=== PATIENT | female | born 1995 | race Caucasian/White ===

== ENCOUNTER 2017-04-23 11:12 | Emergency (ER) | payer BC, OTHER ==
[~2017-04-23] VITALS: Ht 165.1 cm; Wt 55.3 kg
[2017-04-23 11:22] VITALS: TEMP 37.1; Ht 165.1 cm; Wt 55.3 kg
[2017-04-23] MEDS ORDERED: ACETAMINOPHEN 500 MG TAB PO STA (11:37)
[2017-04-23] MEDS ORDERED: ONDANSETRON 4MG OD TAB PO STA (11:37)
[2017-04-23] MEDS ORDERED: ETON1IMP2 (12:00)
--- NOTE | 2017-04-23 12:31 | DIAGNOSTIC IMAGING REPORT ---
CT SCAN OF THE BRAIN WITHOUT IV CONTRAST CLINICAL HISTORY: Fall. COMPARISON STUDY: No priors. TECHNIQUE: Unenhanced axial CT scan of the brain is performed from the vertex to the skull base. A dose lowering technique was utilized adhering to the principles of ALARA. CT DOSE: 537.48 mGy.cm FINDINGS: Brain parenchyma: The brain parenchyma is normal in appearance. There is no hemorrhage, mass effect, or evidence of acute territorial ischemia by CT criteria. Jules-white matter is preserved. No extra-axial fluid collection is seen. Ventricles, sulci, cisterns: Normal in configuration. Intracranial vasculature: The visualized intracranial vasculature at the skull base is normal in appearance. Calvarium: There is no depressed calvarial fracture. Sinuses and mastoids: The visualized paranasal sinuses are clear. The mastoid air cells are well pneumatized. Orbits: The bony orbits are grossly intact. IMPRESSION: No acute intracranial abnormality. Electronically signed by: Chester Chun M.D. 04/23/2017 12:29 PM Dictated Date/Time: 04/23/2017 12:27 PM
[2017-04-23 13:30] VITALS: BP 121/73; PULSE 79; O2SAT 98
--- NOTE | 2017-04-23 16:57 | EMERGENCY ROOM VISIT NOTE ---
History Report prepared by Reggie: Andrew Sorto Under the Supervision of: Dr. Jeffy Rodriguez M.D. First contact with patient: 11:26 Chief Complaint: SYNCOPE Stated Complaint: FAINTED/HIT HEAD Nursing Triage Summary: "I went to get a shower this morning and I passed out hitting the front of my head. I tried to stand up and passed out again and hit the back of my head." patient has abrasions noted to left forehead. patient denies neck pain. we were drinking last night but nothing like this ever happened History of Present Illness The patient is a 22 year old female who presents to the Emergency Room with complaints of 2 syncopal episodes that occurred around an hour ago. She says that she did drink a decent amount of alcohol last night, but felt fine when she woke up this morning. She adds that she has felt fine the past few days, without any recent major illnesses. The patient notes that she did not vomit last night. She says that she then went to take a shower this morning, and started to see stars, and then she tried to get out of the shower, but before she could get out, she fell onto the ground and hit the front of her head. The patient states that she did not remember hitting the ground. She says that when she woke up, she tried to dry her hair a little, but then passed out again, hitting the back of her head. She notes that currently, she has a bit of a headache, with pain at the back of her head. She rates her pain as a 5 out of 10 in severity, and the patient notes that she is a bit nauseous. The patient adds that she has fainted before, including when she was getting her ears pierced. She denies any family history of heart issues or passing out. The patient notes that she did not take any medications this morning. She says that her last period was at the end of last month and it was normal. Pt denies fevers , chills, diaphoresis, neck pain, chest pain, breathing difficulties, vomiting, abdominal pain, back pain, melena, hematochezia, urinary symptoms, numbness, weakness, lymphadenopathy, rash, or other complaints. Source of History: patient, friend Onset: An hour ago Position: other (global - syncope) Symptom Intensity: 2 episodes Timing: other (episodes) Associated Symptoms: + headache, + nausea Note: Associated symptoms: Back of head hurts. Saw stars before passing out. Review of Systems See HPI for pertinent positives and negatives. A total of ten systems were reviewed and were otherwise negative. Past Medical & Surgical Medical Problems: (1) Gout (2) No chronic diseases present Family History No pertinent family history Social History Smoking Status: Never Smoker Alcohol Use: occasionally Marital Status: single Occupation Status: [employer] student Current/Historical Medications Scheduled Etonogestrel (Nexplanon), 1 DOSE UD Allergies Coded Allergies: No Known Allergies (Unverified , 04/23/17) Physical Exam Vital Signs Date Time Temp Pulse Resp B/P (MAP) Pulse Ox O2 Delivery O2 Flow Rate FiO2 04/23/17 13:30 79 121/73 98 Room Air 04/23/17 12:14 80 04/23/17 11:30 90 137/94 83 120/80 103 112/74 04/23/17 11:22 37.1 105 18 131/92 100 Room Air Physical Exam GENERAL: Awake, alert, mildly uncomfortable-appearing, in no distress HENT: Contusion on front and back of head. Oropharynx unremarkable. EYES: Normal conjunctiva. Sclera non-icteric. NECK: Supple. No nuchal rigidity. FROM. No JVD. RESPIRATORY: Clear to auscultation. CARDIAC: Regular rate, normal rhythm. Extremities warm and well perfused. Pulses equal. ABDOMEN: Soft, non-distended. No tenderness to palpation. No rebound or guarding. No masses. RECTAL: Deferred. MUSCULOSKELETAL: Chest examination reveals no tenderness. The back is symmetrical on inspection without obvious abnormality. There is no CVA tenderness to palpation. No joint edema. LOWER EXTREMITIES: Calves are equal size bilaterally and non-tender. No edema. No discoloration. NEURO: Normal sensorium. No sensory or motor deficits noted. SKIN: No rash or jaundice noted. Medical Decision & Procedures ER Provider Diagnostic Interpretation: CT: Radiology results as stated below per my review and radiologist interpretation CT SCAN OF THE BRAIN WITHOUT IV CONTRAST CLINICAL HISTORY: Fall. COMPARISON STUDY: No priors. TECHNIQUE: Unenhanced axial CT scan of the brain is performed from the vertex to the skull base. A dose lowering technique was utilized adhering to the principles of ALARA. CT DOSE: 537.48 mGy.cm FINDINGS: Brain parenchyma: The brain parenchyma is normal in appearance. There is no hemorrhage, mass effect, or evidence of acute territorial ischemia by CT criteria. Jules-white matter is preserved. No extra-axial fluid collection is seen. Ventricles, sulci, cisterns: Normal in configuration. Intracranial vasculature: The visualized intracranial vasculature at the skull base is normal in appearance. Calvarium: There is no depressed calvarial fracture. Sinuses and mastoids: The visualized paranasal sinuses are clear. The mastoid air cells are well pneumatized. Orbits: The bony orbits are grossly intact. IMPRESSION: No acute intracranial abnormality. Electronically signed by: Chester Chun M.D. 04/23/2017 12:29 PM Dictated Date/Time: 04/23/2017 12:27 PM Medications Administered Medications (Trade) Dose Ordered Sig/Leslie Route Start Time Stop Time Status Last Admin Dose Admin Ondansetron HCl (Zofran Odt) 4 mg NOW STAT PO 04/23/17 11:37 04/23/17 11:40 DC 04/23/17 11:58 4 MG Acetaminophen (Tylenol Tab) 1,000 mg NOW STAT PO 04/23/17 11:37 04/23/17 11:40 DC 04/23/17 11:58 1,000 MG ECG Indication: syncope Rate (beats per minute): 59 Rhythm: sinus bradycardia, other (with sinus arrhythmia) Findings: no acute ischemic change, no ectopy, other (normal intervals) ED Course 1133: The patient was evaluated in room C7. A complete history and physical exam was performed. 1137: Ordered Tylenol Tab 1000 mg PO, Zofran Odt 4 mg PO. 1306: I reevaluated the patient and she is comfortable. Discussed results and discharge instructions: she verbalized understanding and agreement. The patient is ready for discharge. Medical Decision Triage Nursing notes reviewed and agree them. Additional history obtained from the patient's friend. The patient's history was concerning for syncope and a head injury. Differential diagnosis: Etiologies such as concussion, infection, hypoglycemia, electrolyte abnormalities, cardiac sources, intracerebral event, toxicologic, neurologic, as well as others were entertained. Physical examination: As above. Clinically the patient was doing well. Orthostatic testing negative. Neurologically intact. No open wounds. ER treatment provided: Oral hydration Zofran ODT Tylenol On reassessment the patient felt better. Diagnostics interpretation by me: Imaging studies: CAT scan as above The patient has a concussion. She had a syncopal episode which sounds very consistent with a vasovagal event. She had a prodrome. She notes significant alcohol consumption last night. The patient was counseled and educated.I gave my usual and customary discussion regarding this issue. By the evaluation outlined above emergent etiologies such as infection, hypoglycemia, electrolyte abnormalities, cardiac sources, intracerebral event, toxicologic, neurologic,as well as others were deemed relatively unlikely. The patient was informed about the findings as listed above. All questions were answered and she was pleased with the treatment. Return instructions were outlined and the patient was discharged in stable condition. Outpatient prescription management: None Referral: The patient was referred back to her primary care physician for follow-up this coming week for a recheck of the current condition. Head Trauma GCS Score: 15 Medication Reconcilliation Current Medication List: was personally reviewed by me Blood Pressure Screening Patient's blood pressure: Normal blood pressure Impression Primary Impression: Syncope Additional Impression: Concussion Scribe Attestation The scribe's documentation has been prepared under my direction and personally reviewed by me in its entirety. I confirm that the note above accurately reflects all work, treatment, procedures, and medical decision making performed by me. Departure Information Dispostion Home / Self-Care Referrals No Doctor, Assigned (PCP) Patient Instructions My [facility] Additional Instructions CONCUSSION DISCHARGE INSTRUCTIONS: What is a concussion? A concussion is a disturbance in the function of the brain caused by a direct or indirect force to the head. It results in a variety of symptoms like: headache, balance problems, nausea, vomiting, vision problems, hearing problems/ringing, drowsiness, irritability, and/or difficulty concentrating or remembering. A concussion may, or may not involve memory problems or loss of consciousness. Concussion instructions: Stop and stay away from ALL physical activity until you are symptom free from: Headaches Balance problems Feeling "dinged" Poor concentration Drowsy Fatigued Rest and avoid strenuous activities for the next few days. Get 8-10 hours of sleep per night. Limit activities that involve significant concentration and attention during this time to speed your recovery. This includes studying, attending school, playing video games, and heavy reading. Your brain needs to rest. Eat right and eat often. Now is the time to feed your brain. Well balanced diets that avoid high sugar foods, sodas, caffeine, etc. are better for your brain. NO ALCOHOL OR DRUGS! Avoid stimulants like caffeine, red bull, mountain dew, "energy" drinks, etc. Tylenol(acetaminophen) may be used for headaches. Use 1000mg every six hours as needed. Avoid using more than 4000mg in a 24 hour period. Avoid anti-inflammatories such as aspirin, ibuprofen, Alleve, naprosyn, Motrin, or Advil as these can interfere with blood clotting and lead to bleeding within the brain after a traumatic injury. Stepwise return to sports for athletes or working out: You may progress to the next step after 24 hours if you are symptom free. If you experience symptoms, you must return to the previous stage and try again after another 24 hours of rest and being symptom free. Best case scenario is full contact game play in 7 days from the time of injury. Remember repeat concussions are worse than the first. Time invested in recovery will allow for better performance and less downtime in the future. If you have any questions see your six sigma black trainer or make an appointment to see one of the team physicians. 1) No activity, complete rest for 3 days. Once all symptoms have resolved, report to the team physician or six sigma black trainer to be cleared to progress to step 2. 2) Start light aerobic exercise, such as walking or stationary cycling, no resistance training permitted.(Day 4) 3) Sport specific exercises. Add light resistance slowly. Go slow to allow your body to readapt. (Day 5) 4) Non-contact full speed practice. (Day 6) 5) Full contact practice and/or game play.(Day 7) FOLLOW UP INSTRUCTIONS: You should have a follow up with your family doctor in 3-5 days regarding your injury. POST CONCUSSIVE SYNDROME: Occasionally patients can experience a postconcussive syndrome which includes prolonged headaches and memory difficulties. This may occur over the next several days, weeks or rarely, even months. It is important to have a primary care physician follow-up in order to help if the situation develops. Problems could arise over the next 24 to 48 hours. You should not be left alone and MUST go to the hospital immediately if you: -Have a headache that suddenly gets worse. -Are very drowsy or cannot be woken up from sleep. -Can't recognize people or places. -Have repeated vomiting. -Behave unusually, seemed confused, or start acting irritable. -Have a seizure (arms and legs start jerking uncontrollably). -Have weak or numb arms or legs. -Are unsteady on your feet -Experience slurred speech or difficulty speaking. Problem Qualifiers Primary Impression: Syncope Syncope type: vasovagal syncope Qualified Codes: R55 - Syncope and collapse Additional Impression: Concussion Encounter type: initial encounter Loss of consciousness presence/duration: with LOC of 30 min or less Qualified Codes: S06.0X1A - Concussion with loss of consciousness of 30 minutes or less, initial encounter
== END 2017-04-23 13:40 | disposition home or self-care (01) ==
LOC: C.EDB 11:14 → C.EDC 13:40
DX: R55 Syncope and collapse (principal); S06.0X1A Concussion with loss of consciousness of 30 minutes or less, initial encounter; S00.93XA Contusion of unspecified part of head, initial encounter; R00.1 Bradycardia, unspecified; R51 Headache; R11.0 Nausea; Z97.5 Presence of (intrauterine) contraceptive device; W19.XXXA Unspecified fall, initial encounter